=== PATIENT | female | born 1985 | race Caucasian/White ===

== ENCOUNTER 2018-12-05 08:29 | Emergency (ER) | payer MEDICAID, SELFPAY ==
[2018-12-05] VITALS (43 sets, daily range): BP systolic 104–157; BP diastolic 56–111; PULSE 31–114; RESP 9–21; TEMP 36.6–37.1; O2SAT 94–100
--- NOTE | 2018-12-05 09:00 | ED.GENADUL_ITS ---
Discharge Plan Disposition Patient Disposition: HOME Condition: Stable Discharge Details Chief Complaint: Abd Prob Clinical Impression: Bradycardia, Left upper quadrant pain Primary Care Provider: Uziel Moore ED Provider: Rosio Maldonado Home Meds and New Rx's Prescriptions: Continued levothyroxine [Synthroid] 137 MCG tablet 175 mcg PO DAILY RF: 0 prednisone 10 MG tablet 10 mg PO DAILY RF: 0 estradiol [Estrace] 1 MG tablet 1 mg PO DAILY RF: 0 triazolam 0.25 MG tablet 0.25 mg PO HS PRN PRNRF: 0 clonidine HCl 0.3 MG tablet 0.3 mg PO HS RF: 0 Discharge Instructions Instructions: Holter Monitoring (ED), Bradycardia (ED), Abdominal Pain (ED) Additional Instructions: Please return immediately to the emergency department if you develop any new or worsening symptoms or if you become otherwise concerned. It is extremely important that you make an appointment to be seen as soon as possible by your primary care doctor and also by sex therapist in follow-up for this visit. Please call [phone] if you have any difficulty establishing these appointments. Referrals: Poncho Downey MD [ CONSULTING PHYSICIAN] - Uziel Moore [Primary Care Provider] - Discharge Data Discharge Date/Time-TO BE ENTERED AT DEPARTURE: 12/05/18 14:46 Medical Decision Making Simi Segura is a 33-year-old woman with history of gastric bypass, thyroidectomy, TEENA, rheumatoid arthritis presenting to the emergency department with left upper quadrant pain and slow heart rate on Fitbit for the past 3-4 days. On exam patient is well and nontoxic appearing. She appears comfortable. She is bradycardic with an otherwise benign cardiopulmonary exam. Tenderness in the epigastrium and left upper quadrant that reproduces her pain without peritoneal signs. Exam is otherwise normal. Concern for bradycardia secondary to hypothyroidism versus other metabolic/lyte derangement versus increased vagal tone versus sick sinus/other cardiogenic etiology, also concern for pancreatitis versus GI ulcers versus less likely complication from prior surgeries given patient with normal bowel movements, eating and drinking as usual. Doubt ACS. Exam/history not consistent with PE, acute aortic pathology, mesenteric ischemia, sepsis. Plan for EKG, chest x-ray, screening labs, IV fluid hydration, IV pain medication, IV Zofran, telemetry, cardiology consult. I discussed patient presentation with HR 20-30s with Dr. Downey of cardiology who reviewed EKG, who recommended outpatient zio patch cardiac monitoring, no other acute intervention at this time. Imaging negative. Labs nondiagnostic. Patient reports pain somewhat improved. On monitor, patient heart rate ranging between 30 and 50, patient reporting no lightheadedness, including while walking to get up to go to the bathroom. Plan for zio patch, GI cocktail, outpatient follow-up. I had a lengthy discussion with the patient regarding return to emergency department precautions, home care, and importance of outpatient follow-up with PCP and cardiology. I did discuss discontinuation of clonidine, however patient reports that she is unsure if she will tolerate not taking it at night and would prefer to see cardiology prior to discontinuation. Imaging Data Radiologic Study: Attestation: I personally reviewed and interpreted this imaging study as follows: Radiologist's impression: Per radiology phone report, chest x-ray and CT abdomen/pelvis negative for acute process Lab Data Lab results reviewed: Yes I reviewed the patient's lab results. Laboratory Tests Range/Units 12/05/18 12/05/18 12/05/18 08:40 09:05 09:05 WBC (4.4-10.8) k/cumm RBC (4.00-5.20) m/cumm Hgb (12.0-15.5) g/dL Hct (36.0-46.0) % MCV (80-95) fL MCH (27.0-33.0) pg MCHC (32.0-36.0) g/dL RDW (11.7-14.6) % Plt Count (130-400) x1000/uL MPV (8.0-11.0) fL Immature Gran % Neutrophils % Lymphocytes % Monocytes % Eosinophils % Basophils % Absolute Neutrophils (1.2-6.7) k/cumm Absolute Lymphocytes (1.2-3.4) k/cumm Absolute Monocytes (0.11-0.7) k/cumm Absolute Eosinophils (0.0-0.7) k/cumm Absolute Basophils (0.0-0.2) k/cumm Sodium (136-145) mmol/L 139 Potassium (3.5-5.1) mmol/L 4.2 Chloride (98-107) mmol/L 104 Carbon Dioxide (21.0-32.0) mmol/L 26.4 Anion Gap (3-11) mmol/L 8.6 BUN (7-18) mg/dL 13 Creatinine (0.55-1.02) mg/dL 1.04 H Estimated GFR/1.73 m2 (mL/min/1.73m2) >= 60.00 Glucose (70-100) mg/dL 115 H Lactate (0.6-1.4) mmol/l 1.1 Calcium (8.5-10.1) mg/dL 8.9 Total Bilirubin (0.2-1.0) mg/dL 0.3 AST (15-37) U/L 19 ALT (12-78) U/L 21 Alkaline Phosphatase (46-116) U/L 70 Troponin I (0.00-0.06) ng/mL < 0.02 Total Protein (6.4-8.2) g/dL 7.4 Albumin (3.4-5.0) g/dL 4.0 Lipase (73-393) U/L 111 TSH (0.358-3.74) uIU/mL 1.14 Urine Color (Yellow) Lily Urine Clarity Clear Urine pH (5-8) 5.5 Ur Specific [place] (1.005-1.025) >= 1.030 H Urine Protein (Negative) mg/dL Trace H Urine Ketones (Negative) mg/dL 15 H Urine Blood (Negative) Negative Urine Nitrite (Negative) Negative Urine Bilirubin (Negative) Small H Urine Urobilinogen (Up TO 0.2) EU/dL 1.0 H Ur Leukocyte Esterase (Negative) Negative Urine RBC (0-2) Negative Urine WBC (0-5) HPF 0-2 Ur Epithelial Cells (Negative) HPF Moderate Urine Crystals (Negative) HPF Negative Urine Bacteria (Negative) HPF Few Urine Casts (Negative) LPF Negative Urine Mucus (Negative) Moderate Ur Culture Indicated? No/sq. contamination Urine Glucose (Negative) mg/dL Negative Range/Units 12/05/18 12/05/18 09:05 13:10 WBC (4.4-10.8) k/cumm 5.16 RBC (4.00-5.20) m/cumm 3.79 L Hgb (12.0-15.5) g/dL 12.3 Hct (36.0-46.0) % 36.8 MCV (80-95) fL 97.1 H MCH (27.0-33.0) pg 32.5 MCHC (32.0-36.0) g/dL 33.4 RDW (11.7-14.6) % 13.1 Plt Count (130-400) x1000/uL 216 MPV (8.0-11.0) fL 10.3 Immature Gran % 0.2 Neutrophils % 67.9 Lymphocytes % 22.9 Monocytes % 7.6 Eosinophils % 1.0 Basophils % 0.4 Absolute Neutrophils (1.2-6.7) k/cumm 3.51 Absolute Lymphocytes (1.2-3.4) k/cumm 1.18 L Absolute Monocytes (0.11-0.7) k/cumm 0.39 Absolute Eosinophils (0.0-0.7) k/cumm 0.05 Absolute Basophils (0.0-0.2) k/cumm 0.02 Sodium (136-145) mmol/L Potassium (3.5-5.1) mmol/L Chloride (98-107) mmol/L Carbon Dioxide (21.0-32.0) mmol/L Anion Gap (3-11) mmol/L BUN (7-18) mg/dL Creatinine (0.55-1.02) mg/dL Estimated GFR/1.73 m2 (mL/min/1.73m2) Glucose (70-100) mg/dL Lactate (0.6-1.4) mmol/l Calcium (8.5-10.1) mg/dL Total Bilirubin (0.2-1.0) mg/dL AST (15-37) U/L ALT (12-78) U/L Alkaline Phosphatase (46-116) U/L Troponin I (0.00-0.06) ng/mL 0.03 Total Protein (6.4-8.2) g/dL Albumin (3.4-5.0) g/dL Lipase (73-393) U/L TSH (0.358-3.74) uIU/mL Urine Color (Yellow) Urine Clarity Urine pH (5-8) Ur Specific [place] (1.005-1.025) Urine Protein (Negative) mg/dL Urine Ketones (Negative) mg/dL Urine Blood (Negative) Urine Nitrite (Negative) Urine Bilirubin (Negative) Urine Urobilinogen (Up TO 0.2) EU/dL Ur Leukocyte Esterase (Negative) Urine RBC (0-2) Urine WBC (0-5) HPF Ur Epithelial Cells (Negative) HPF Urine Crystals (Negative) HPF Urine Bacteria (Negative) HPF Urine Casts (Negative) LPF Urine Mucus (Negative) Ur Culture Indicated? Urine Glucose (Negative) mg/dL ECG Data Attestation: I personally reviewed and interpreted this ECG (s) as follows: Interpretation: EKG shows sinus bradycardia 33 with normal axis, no acute ischemic changes Repeat EKG shows sinus bradycardia at 33 with normal axis, no acute ischemic changes HPI General Mode of arrival: ambulatory . Date/Time Provider Initiated Documentation: 12/05/18 08:58 . Limitations to Documentation: no limitations . Information obtained by: patient, RN notes reviewed and old records reviewed . HPI Narrative: Simi Segura is a 23-year-old woman with a history of hypothyroidism status post thyroidectomy, rheumatoid arthritis, gastric bypass surgery, cholecystectomy presenting to the emergency department with low heart rate and left upper quadrant pain. Patient reports that she had episodes of bradycardia in the past 1 year ago, and was admitted to [facility] for this. She reports that she has been on thyroid medication since then, and her dose was recently increased 3 months ago. Patient reports that she did go for. Around that time where she was not taking her thyroid medication for financial reasons, however she states she has been taking it daily for the past 1.5 months. Patient reports that she has a fit bit wrist heart rate monitor, and she has noticed that in the past few days her heart rate has been in the 20s and 30s which is not typical for her. This is how low it was when she was admitted to the hospital for bradycardia last year. Patient reports that she does have orthostatic lightheadedness over the past few days that seem to be related to her heart rate being low. She has not had any fainting episodes. She also notes that her heart rate monitor has shown her heart rate occasionally in the past few days to also be above 100, with highest rate of 150s this morning when she was in the shower. She reports that she does feel her heart racing when the monitor is showing that S. She denies any current palpitations. Patient also reports that in the past 3 days she has developed left upper quadrant pain. Pain feels worse with eating. She states that she has had gastric bypass surgery in the past and has also had a perforated bowel that needed repair. She has had somewhat decreased p.o. intake over the past few days secondary to the pain. She has had nausea but no vomiting, no diarrhea, no constipation. Last bowel movement was last night and was normal for her. No dysuria. Patient also does take clonidine at night. She reports she has not been taking any more than is prescribed for her. Related Data Home Medications Medication Instructions Recorded Confirmed estradiol [Estrace] 1 mg PO DAILY 09/02/16 12/05/18 levothyroxine [Synthroid] 175 mcg PO DAILY 09/02/16 12/05/18 prednisone 10 mg PO DAILY 09/02/16 12/05/18 triazolam 0.25 mg PO HS PRN PRN 03/24/17 12/05/18 clonidine HCl 0.3 mg PO HS 03/07/18 12/05/18 Allergies Allergy/AdvReac Type Severity Reaction Status Date / Time ketorolac Allergy Intermediate Itching Unverified 12/05/18 09:03 tramadol Allergy Intermediate Itching Unverified 12/05/18 09:03 aspirin Allergy Unknown Unverified 12/05/18 09:03 Iodinated Contrast- Oral and Allergy Itching Unverified 12/05/18 09:03 IV Dye [Iodinated Contrast Media - IV Dye] eletriptan HBr [From Relpax] AdvReac worsening Unverified 12/05/18 09:03 Migraine Review of Systems Review of Systems Constitutional: denies fevers Eyes: denies eye pain ENT: denies facial pain, dental pain, sore throat Cardiovascular: denies chest pain, edema, reports palpitations, lightheadedness Respiratory: denies SOB, cough GI: denies vomiting, diarrhea, reports abdominal pain, nausea : denies flank pain MSK: denies back pain, neck pain, arthralgias, myalgias Skin: denies rash Neuro: denies headaches, numbness, weakness [facility] Social History Smoking and Tabacco status: Former Tobacco Use Exam Narrative Exam Narrative: Constitutional: well and [id number], pleasant, conversing normally HENT: head atraumatic/normocephalic/normal inspection, mucous membranes moist Eyes: conjunctiva normal, sclera normal, pupils 3mm b/l Neck: no stridor, normal ROM, trachea midline Chest: normal inspection Resp: normal work of breathing, LCTAB Cardio: Bradycardic rate, normal rhythm, no murmur appreciated GI: abdomen soft, focally tender epigastrium and left upper quadrant, reproduces pain, no rebound, no guarding, non-distended Back: normal inspection, no rash Skin: warm, dry, normal color, no rash Neuro: alert, not altered, grossly non-focal, normal tone Ext: no edema, no posterior calf tenderness palpation Psych: normal mood, normal affect, normal behavior
[2018-12-05 09:16] LABS: Abs Immature Grans 0.01 k/cumm (0.0-0.09); Absolute Basophil Count 0.02 k/cumm (0.0-0.2); Absolute Eosinophil Count 0.05 k/cumm (0.0-0.7); Absolute Lymphocyte Count 1.18 k/cumm (1.2-3.4); Absolute Monocyte Count 0.39 k/cumm (0.11-0.7); Absolute Neutrophil Count 3.51 k/cumm (1.2-6.7); Basophils % 0.4; HCT 36.8 % (36.0-46.0); HGB 12.3 g/dL (12.0-15.5); Immature Grans % 0.2; Lactate-non-spesis 1.1 mmol/l (0.6-1.4); Lymphocytes % 22.9; Mean Corp. HGB Concentration 33.4 g/dL (32.0-36.0); Mean Corpuscular Hemoglobin 32.5 pg (27.0-33.0); Mean Corpuscular Volume 97.1 fL (80-95); Mean Platelet Volume 10.3 fL (8.0-11.0); Monocytes % 7.6; Neutrophils % 67.9; Platelet Count 216 x1000/uL (130-400); RBC 3.79 m/cumm (4.00-5.20); RBC Distribution Width 13.1 % (11.7-14.6); White Blood Cell Count 5.16 k/cumm (4.4-10.8)
[2018-12-05 09:24] LABS: Bilirubin Small (Negative); Blood Negative (Negative); Clarity Clear; Glucose Negative (Negative); Ketones 15 mg/dL (Negative); Leukocyte Esterase Negative (Negative); Nitrite Negative (Negative); Specific Gravity >= 1.030 (1.005-1.025); pH 5.5 (5-8)
[2018-12-05] MEDS: MORPHine 10 MG/ML VIAL 2 MG IVP ×2 (09:24→10:09)
[2018-12-05] MEDS: methylPREDNISolone SUCC 125 MG VIAL IVP (09:24)
[2018-12-05] MEDS: Ondansetron 4 MG/2 ML VIAL IVP (09:25)
[2018-12-05] MEDS: diphenhydrAMINE 50 MG/ML VIAL IVP (09:30)
[2018-12-05 09:32] LABS: Epithelial Cells Moderate HPF (Negative); RBC Negative (0-2); WBC 0-2 HPF (0-5)
[2018-12-05 09:33] LABS: Bacteria Few HPF (Negative); C & S Indicated? No/Sq. Contamination; Casts Negative LPF (Negative); Crystals Negative HPF (Negative); Mucus Moderate (Negative)
[2018-12-05 09:44] LABS: ALT 21 U/L (12-78); AST 19 U/L (15-37); Alkaline Phosphatase 70 U/L (46-116); Anion Gap 8.6 mmol/L (3-11); BUN 13 mg/dL (7-18); Bilirubin, Total 0.3 mg/dL (0.2-1.0); CO2 26.4 mmol/L (21.0-32.0); CREATININE 1.04 mg/dL (0.55-1.02); Calcium 8.9 mg/dL (8.5-10.1); Chloride 104 mmol/L (98-107); Glucose 115 mg/dL (70-100); Lipase 111 U/L (73-393); Potassium 4.2 mmol/L (3.5-5.1); Sodium 139 mmol/L (136-145); TSH (W/Ref FT4) 1.14 uIU/mL (0.358-3.74); Total Protein 7.4 g/dL (6.4-8.2)
[2018-12-05 09:48] LABS: Troponin I < 0.02 ng/mL (0.00-0.06)
--- NOTE | 2018-12-05 09:55 | DI.CT_ITS ---
SYMPTOM/DIAGNOSIS: LUQ PAIN, H/O GASTRIC BYPASS, S/P TEENA, AND CHOLECYSTECTOMY ABDOMEN AND PELVIC CT: Routine examination was performed. The dome of the liver was not included on this examination. No acute findings are seen in the lung bases. The liver is normal in size. No suspicious hepatic mass is seen. The portal, superior mesenteric and splenic veins are patent. The patient is status post cholecystectomy. There is unchanged dilatation of the intra and extrahepatic bile ducts. The pancreas, spleen and adrenal glands are unremarkable. The kidneys show normal and symmetric enhancement. No suspicious solid renal mass or obstruction is identified. The urinary bladder is intact. The patient appears to be status post hysterectomy. The abdominal aorta is of normal caliber with mild atherosclerosis. No significant abdominal or pelvic adenopathy, ascites or pneumoperitoneum is seen. There are post surgical changes of a gastric bypass surgery. No evidence of bowel obstruction or inflammation is seen. There is a normal appendix present. No acute osseous abnormality is identified. IMPRESSION: No evidence of an acute abdomen. The findings were discussed with the ER on the date of the examination.
[2018-12-05] MEDS: Omnipaque 350 MG/ML 100 ML BTL IJ (11:10)
--- NOTE | 2018-12-05 12:00 | DI.RAD_ITS ---
SYMPTOM/DIAGNOSIS: BRADYCARDIA, UPPER ABD PAIN PA AND LATERAL CHEST: Comparison is made with 11/20/17. The heart is normal in size. The lungs are clear. The mediastinal structures and pleura appear intact. CONCLUSION: Normal chest.
[2018-12-05 13:29] LABS: Troponin I 0.03 ng/mL (0.00-0.06)
[2018-12-05] MEDS: diphenhydrAMINE 25 MG CAP 50 MG PO (14:32)
--- NOTE | 2018-12-06 09:28 | PDOC.ERCMPRO ---
Care Management Progress Note 12/06-Dr. Che Maldonado requested assistance with a cardiology and PCP (Jhonny Moore) f/u as soon as possible for bradycardia. Referral faxed to Cardiology this am. Tried calling Simi but no answer. Called Dr. Moore's office and left message on their voice mail to return call.
--- NOTE | 2019-02-12 15:37 | ZIOP_ITS ---
DATE OF DICTATION: February 12, [address]: 11 days, 8 hours, December 05-2018 Baseline rhythm sinus. Rare single PAC. No SVT. Ectopic atrial rhythm noted intermittently. Rare single PVC, less than 1% of total beat. No VT. No bradycardia/block. No symptoms. Thirty triggered events, occurring during sinus rhythm +/- ectopic atrial rhythm. Heart rates 42-168 bpm. Average heart rate sinus 84 bpm, range 33-178 bpm.
== END 2018-12-05 14:46 | disposition home or self-care (01) ==
PROVIDERS: Emergency Provider Student in an Organized Health Care Education/Training Program; PCP Family Medicine
DX: R00.1 Bradycardia, unspecified (principal); R10.13 Epigastric pain; R10.12 Left upper quadrant pain; R11.0 Nausea; E89.0 Postprocedural hypothyroidism
CPT/HCPCS: 36415; 80053; 83690; 93005; 93225; 96374; 96375; 96376; 99285; 71046; 74177; 81003; 81015; 83605; 84443; 84484; 85025; 93010; J1200; J2270; J2405; J2930; J3490

== ENCOUNTER 2023-03-17 14:26 | Emergency (ER) | payer MEDICAID, SELFPAY ==
[2023-03-17 15:10] VITALS: BP 145/96; PULSE 74; RESP 16; TEMP 36.7; O2SAT 98
[2023-03-17 15:24] LABS: Bilirubin Negative (Negative); Blood Negative (Negative); Clarity Clear (Clear); Glucose Negative (Negative); Ketones Negative (Negative); Leukocyte Esterase Negative (Negative); Nitrite Negative (Negative); Specific Gravity 1.015 (1.005-1.025); Urobilinogen 0.2 mg/dL (Up to 0.2)
[2023-03-17] MEDS: Normal Saline 1,000 ML 1000 ML IV (16:45)
[2023-03-17 16:51] LABS: Abs Immature Grans 0.01 10^3/uL (0.0-0.06); Absolute Basophil Count 0.03 10^3/uL (0.0-0.2); Absolute Eosinophil Count 0.11 10^3/uL (0.0-0.7); Absolute Lymphocyte Count 1.84 10^3/uL (1.2-3.4); Absolute Monocyte Count 0.45 10^3/uL (0.1-0.8); Absolute Neutrophil Count 4.06 10^3/uL (1.2-6.7); Basophils % 0.5; Eosinophils % 1.7; HCT 34.8 % (36.0-46.0); HGB 11.1 g/dL (11.2-15.7); Immature Grans % 0.2; Lymphocytes % 28.3; MCH 25.4 pg (27.0-33.0); MCHC 31.9 % (32.0-36.0); MCV 80 fL (80-95); MPV 9.3 fL (8.0-11.0); Monocytes % 6.9; Neutrophils % 62.4; Platelet Count 376 10^3/uL (130-400); RBC 4.37 10^6/uL (3.93-5.22); RDW 15.9 % (11.7-14.6)
[2023-03-17 17:04] LABS: ALT 26 U/L (14-59); AST 15 U/L (15-37); Albumin 3.9 g/dL (3.4-5.0); Alkaline Phosphatase 92 U/L (46-116); Anion Gap 9.5 mmol/L (3-11); BUN 10 mg/dL (7-18); Bilirubin, Total 0.3 mg/dL (0.2-1.0); CO2 25.5 mmol/L (21.0-32.0); CREATININE 0.8 mg/dL (0.55-1.02); Calcium 9.4 mg/dL (8.5-10.1); Chloride 106 mmol/L (98-107); Estimated GFR 96.66 (mL/min/1.73m2); Glucose 92 mg/dL (74-106); Lipase 67 U/L (16-77); Magnesium 2.2 mg/dL (1.8-2.4); Potassium 3.8 mmol/L (3.5-5.1); Sodium 141 mmol/L (136-145); Total Protein 7.9 g/dL (6.4-8.2)
[2023-03-17] MEDS: Mylanta Suspension 30 ML CUP (17:27)
[2023-03-17] MEDS: Droperidol 5 MG/2 ML VIAL 2.5 MG IVP (17:28)
[2023-03-17] MEDS: Pantoprazole 40 MG VIAL IVP (17:29)
--- NOTE | 2023-03-17 17:59 | ED.GENADUL_ITS ---
Discharge Plan Disposition Patient Disposition: Home Condition: Stable Discharge Details Clinical Impression: Epigastric abdominal pain ED Provider: Heather Del Castillo Home Meds and New Rx's Prescriptions: Continued levothyroxine [Synthroid] 137 MCG tablet 350 mcg PO DAILY prednisone 10 MG tablet 10 mg PO PRN PRN Patient Comments: 10 to 40 mg depending on SX- used for her RA estradiol [Estrace] 1 MG tablet 1 mg PO DAILY famotidine 40 mg tablet 40 mg PO DAILY Patient Comments: take 1 tablet by mouth once daily rizatriptan 10 mg tablet 10 mg PO PRN PRN Patient Comments: take 1 tablet by mouth ONCE may repeat AT 2 hours INTERVALS NOT O... (REFER TO PRESCRIPTION NOTES). liothyronine 5 mcg tablet 5 mcg PO DAILY Patient Comments: take 1 tablet by mouth once daily pantoprazole 40 mg tablet,delayed release (DR/EC) 40 mg PO DAILY Patient Comments: take 1 tablet by mouth once daily betamethasone dipropionate 0.05 % cream 0.05 applic TOPICAL DAILY Patient Comments: apply to affected area twice a day ON leg ondansetron 4 mg tablet,disintegrating 4 mg PO PRN PRN Patient Comments: dissolve 1 tablet ON TONGUE every 8 hours if needed for nausea OR vomiting triazolam 0.25 MG tablet 0.25 mg PO HS PRN PRN Patient Comments: I do not take any more clonidine HCl 0.3 MG tablet 0.3 mg PO HS Patient Comments: Does not take anymore Discharge Instructions Instructions: Epigastric Pain (ED) Additional Instructions: Your labs shows no acute lab abnormalities. You do not have acute pancreatitis, abnormal liver functions, evidence of dehydration or electrolyte abnormalities. Your abdominal exam is unremarkable and your vital signs are stable there is no indication for any further imaging at this time. Referrals: None,None [ [facility] STAFF PHYSICIAN] - (See your primary care provider for further outpatient work-up) Discharge Data Discharge Date/Time-TO BE ENTERED AT DEPARTURE: 03/17/23 18:06 Medical Decision Making <Heather Del Castillo NP - Last Filed: 03/19/23 15:22> Is a 37-year-old female patient who presents with epigastric abdominal pain. Will establish an IV check routine lab including CBC CMP lipase urine. Will give 1 L of normal saline and droperidol 2.5 mg IV push. I queried whether she has been worked up for this pain prior and she said no but according to our records she was seen 2 days ago at 2 facilities and had CAT scans done at both of them that were both unremarkable. Her labs are reviewed and on remarkable here are all within normal limits including electrolytes kidney function liver function and lipase. She does not have an elevated white count. Her abdominal exam is benign but she does endorse pain. We will administer a GI cocktail. Vital signs of been stable abdominal exam remains unchanged. She is safe for discharge to home I did advise she follow-up with her primary care provider to consider EGD if this has not already been done Medical Records Medical records reviewed: Yes I reviewed the patient's medical records. Medical records narrative: Medical records from [facility] and [facility] both visits from January 13, 2023 including lab, CAT scan, Lab Data Lab results reviewed: Yes I reviewed the patient's lab results. Lab results narrative: Laboratory Tests Range/Units 03/17/23 03/17/23 03/17/23 15:16 16:45 16:45 WBC (4.4-10.8) 10^3/uL 6.50 RBC (3.93-5.22) 10^6/uL 4.37 Hgb (11.2-15.7) g/dL 11.1 L Hct (36.0-46.0) % 34.8 L MCV (80-95) fL 80 MCH (27.0-33.0) pg 25.4 L MCHC (32.0-36.0) % 31.9 L RDW (11.7-14.6) % 15.9 H Plt Count (130-400) 10^3/uL 376 MPV (8.0-11.0) fL 9.3 Immature Gran % 0.2 Neutrophils % 62.4 Lymphocytes % 28.3 Monocytes % 6.9 Eosinophils % 1.7 Basophils % 0.5 Nucleated RBC % (0.0-0.3) % 0.0 Absolute Neutrophils (1.2-6.7) 10^3/uL 4.06 Absolute Lymphocytes (1.2-3.4) 10^3/uL 1.84 Absolute Monocytes (0.1-0.8) 10^3/uL 0.45 Absolute Eosinophils (0.0-0.7) 10^3/uL 0.11 Absolute Basophils (0.0-0.2) 10^3/uL 0.03 Sodium (136-145) mmol/L 141 Potassium (3.5-5.1) mmol/L 3.8 Chloride (98-107) mmol/L 106 Carbon Dioxide (21.0-32.0) mmol/L 25.5 Anion Gap (3-11) mmol/L 9.5 BUN (7-18) mg/dL 10 Creatinine (0.55-1.02) mg/dL 0.8 Est GFR (CKD-EPI 2020) (mL/min/1.73m2) 96.66 Glucose (74-106) mg/dL 92 Calcium (8.5-10.1) mg/dL 9.4 Magnesium (1.8-2.4) mg/dL 2.2 Total Bilirubin (0.2-1.0) mg/dL 0.3 AST (15-37) U/L 15 ALT (14-59) U/L 26 Alkaline Phosphatase (46-116) U/L 92 Total Protein (6.4-8.2) g/dL 7.9 Albumin (3.4-5.0) g/dL 3.9 Lipase (16-77) U/L 67 Urine Color (Yellow) Yellow Urine Clarity (Clear) Clear Urine pH (5-8) 7.0 Ur Specific [place] (1.005-1.025) 1.015 Urine Protein (Negative) mg/dL Negative Urine Ketones (Negative) mg/dL Negative Urine Blood (Negative) Negative Urine Nitrite (Negative) Negative Urine Bilirubin (Negative) Negative Urine Urobilinogen (Up to 0.2) mg/dL 0.2 Ur Leukocyte Esterase (Negative) Negative Urine Glucose (Negative) mg/dL Negative <Ollie Maldonado MD - Last Filed: 03/30/23 17:27> Note: I did not evaluate this patient. The patient was seen, evaluated, treated and dispositioned independently by ARNAUD Del Castillo. HPI <Heather Del Castillo NP - Last Filed: 03/19/23 15:22> General Mode of arrival: ambulatory . Date/Time Provider Initiated Documentation: 03/17/23 15:09 . Limitations to Documentation: no limitations . Information obtained by: patient . HPI Narrative: Presents with complaints of epigastric pain that has been ongoing since Tuesday. Denies being seen for this but records show that she was seen on March 15 at [facility] and [facility] and had to abdominal pelvic CTs at each facility in addition to lab work which was unremarkable. Related Data Home Medications Medication Instructions Recorded Confirmed estradiol 1 mg tablet (Estrace) 1 mg PO DAILY 09/02/16 03/17/23 levothyroxine 137 mcg tablet 350 mcg PO DAILY 09/02/16 03/17/23 (Synthroid) prednisone 10 mg tablet 10 mg PO PRN PRN 09/02/16 03/17/23 triazolam 0.25 mg tablet 0.25 mg PO HS PRN PRN 03/24/17 12/05/18 clonidine HCl 0.3 mg tablet 0.3 mg PO HS 03/07/18 12/05/18 betamethasone dipropionate 0.05 % 0.05 applic topical DAILY 03/17/23 03/17/23 topical cream famotidine 40 mg tablet 40 mg PO DAILY 03/17/23 03/17/23 liothyronine 5 mcg tablet 5 mcg PO DAILY 03/17/23 03/17/23 ondansetron 4 mg disintegrating 4 mg PO PRN PRN 03/17/23 03/17/23 tablet pantoprazole 40 mg tablet,delayed 40 mg PO DAILY 03/17/23 03/17/23 release rizatriptan 10 mg tablet 10 mg PO PRN PRN 03/17/23 03/17/23 Allergies Allergy/AdvReac Type Severity Reaction Status Date / Time ketorolac Allergy Intermediate Itching Unverified 03/17/23 16:03 tramadol Allergy Intermediate Itching Unverified 03/17/23 16:03 aspirin Allergy Unknown Unverified 03/17/23 16:03 Iodinated Contrast Media Allergy Itching Unverified 03/17/23 16:03 [Iodinated Contrast Media - IV Dye] eletriptan HBr [From Relpax] AdvReac worsening Unverified 03/17/23 16:03 Migraine General Stated Complaint: Abd Prob ESEQUIEL: 3 Review of Systems <Heather Del Castillo NP - Last Filed: 03/19/23 15:22> All systems reviewed & are unremarkable except as noted in HPI and below PFSH <Heather Del Castillo NP - Last Filed: 03/19/23 15:22> All Active Problems (Updated 03/17/23 @ 18:01 by Heather Del Casitllo NP) Epigastric abdominal pain (Acute) Social History Smoking/Tobacco Use Status: Former Tobacco Use Smoking risk assessment performed?: Yes Drug use: Occasionally Substance use type: marijuana Do you feel safe at home: Yes Do you feel safe in your relationship?: Yes Course <Heather Del Castillo NP - Last Filed: 03/19/23 15:22> Vital Signs Vital signs: Vital Signs Temperature 36.7 C 03/17/23 15:10 Pulse 74 03/17/23 15:10 Respiratory Rate 16 03/17/23 15:10 Blood Pressure 145/96 H 03/17/23 15:10 Pulse Oximetry 98 03/17/23 15:10 Temperature 36.7 C 03/17/23 15:10 Temperature Source Oral 03/17/23 15:10 Pulse 74 03/17/23 15:10 Respiratory Rate 16 03/17/23 15:10 Respiratory Effort Normal, Non-Labored 03/17/23 15:56 Blood Pressure 145/96 H 03/17/23 15:10 Blood Pressure Position Sitting 03/17/23 15:10 Pulse Oximetry 98 03/17/23 15:10 Oxygen Delivery Method Room Air 03/17/23 15:10 Oxygen Flow Rate 0 03/17/23 15:10 Pain Level 8 03/17/23 15:10 Lab/Test Results Lab/Test Results: Laboratory Tests Range/Units 03/17/23 03/17/23 03/17/23 15:16 16:45 16:45 WBC (4.4-10.8) 10^3/uL 6.50 RBC (3.93-5.22) 10^6/uL 4.37 Hgb (11.2-15.7) g/dL 11.1 L Hct (36.0-46.0) % 34.8 L MCV (80-95) fL 80 MCH (27.0-33.0) pg 25.4 L MCHC (32.0-36.0) % 31.9 L RDW (11.7-14.6) % 15.9 H Plt Count (130-400) 10^3/uL 376 MPV (8.0-11.0) fL 9.3 Immature Gran % 0.2 Neutrophils % 62.4 Lymphocytes % 28.3 Monocytes % 6.9 Eosinophils % 1.7 Basophils % 0.5 Nucleated RBC % (0.0-0.3) % 0.0 Absolute Neutrophils (1.2-6.7) 10^3/uL 4.06 Absolute Lymphocytes (1.2-3.4) 10^3/uL 1.84 Absolute Monocytes (0.1-0.8) 10^3/uL 0.45 Absolute Eosinophils (0.0-0.7) 10^3/uL 0.11 Absolute Basophils (0.0-0.2) 10^3/uL 0.03 Sodium (136-145) mmol/L 141 Potassium (3.5-5.1) mmol/L 3.8 Chloride (98-107) mmol/L 106 Carbon Dioxide (21.0-32.0) mmol/L 25.5 Anion Gap (3-11) mmol/L 9.5 BUN (7-18) mg/dL 10 Creatinine (0.55-1.02) mg/dL 0.8 Est GFR (CKD-EPI 2020) (mL/min/1.73m2) 96.66 Glucose (74-106) mg/dL 92 Calcium (8.5-10.1) mg/dL 9.4 Magnesium (1.8-2.4) mg/dL 2.2 Total Bilirubin (0.2-1.0) mg/dL 0.3 AST (15-37) U/L 15 ALT (14-59) U/L 26 Alkaline Phosphatase (46-116) U/L 92 Total Protein (6.4-8.2) g/dL 7.9 Albumin (3.4-5.0) g/dL 3.9 Lipase (16-77) U/L 67 Urine Color (Yellow) Yellow Urine Clarity (Clear) Clear Urine pH (5-8) 7.0 Ur Specific [place] (1.005-1.025) 1.015 Urine Protein (Negative) mg/dL Negative Urine Ketones (Negative) mg/dL Negative Urine Blood (Negative) Negative Urine Nitrite (Negative) Negative Urine Bilirubin (Negative) Negative Urine Urobilinogen (Up to 0.2) mg/dL 0.2 Ur Leukocyte Esterase (Negative) Negative Urine Glucose (Negative) mg/dL Negative
== END 2023-03-17 18:06 | disposition home or self-care (01) ==
PROVIDERS: Emergency Provider Nurse Practitioner Acute Care
DX: R10.13 Epigastric pain (principal); R05.9 Cough, unspecified; R06.2 Wheezing
CPT/HCPCS: 36415; 80053; 81025; 83690; 96361; 96374; 96375; 99284; 81003; 83735; 85025; J1790